=== PATIENT | female | born 1940 | race Caucasian/White ===

== ENCOUNTER 2021-09-28 10:05 | Inpatient (IN) | payer OTHER ==
[~2021-09-28] VITALS: Ht 163.8 cm; Wt 72.6 kg
[2021-09-28 10:46] LABS: HEMOGLOBIN 13.5 gm/dl (12.3-15.3); RED BLOOD COUNT 4.14 M/UL (4.00-5.10); WHITE BLOOD COUNT 15.4 K/UL (4.5-11.0)
[2021-09-28 11:18] LABS: BUN/CREATININE RATIO 14 (0-10)
[2021-09-28] MEDS ORDERED: LEVOXYL75 MCG PO (12:06)
[2021-09-28] MEDS ORDERED: PRAVASTATIN SOD40 MG PO (12:06)
[2021-09-28] MEDS ORDERED: ZYRTEC10 MG PO (12:07)
[2021-09-28] MEDS ORDERED: ELIQUIS5 MG PO (12:07)
[2021-09-28] MEDS ORDERED: METOPROLOL SUCC25 MG PO (12:07)
[2021-09-28] MEDS ORDERED: MULTIVITAMIN1 EACH PO (12:07)
[2021-09-28] MEDS ORDERED: VITAMIN D325 MC6 PO (12:08)
[2021-09-29 03:55] LABS: HEMOGLOBIN 13.6 gm/dl (12.3-15.3); RED BLOOD COUNT 4.17 M/UL (4.00-5.10); WHITE BLOOD COUNT 12.8 K/UL (4.5-11.0)
[2021-09-29 06:44] LABS: BUN/CREATININE RATIO 19 (0-10)
[2021-09-30 07:59] LABS: HEMOGLOBIN 12.3 gm/dl (12.3-15.3); RED BLOOD COUNT 3.96 M/UL (4.00-5.10); WHITE BLOOD COUNT 12.1 K/UL (4.5-11.0)
[2021-09-30 08:20] LABS: BUN/CREATININE RATIO 18 (0-10)
[2021-10-01 03:08] LABS: HEMOGLOBIN 11.9 gm/dl (12.3-15.3); RED BLOOD COUNT 3.76 M/UL (4.00-5.10); WHITE BLOOD COUNT 11.6 K/UL (4.5-11.0)
[2021-10-03] MEDS ORDERED: BETAPACE 80MG T80 MG PO (11:14)
[2021-10-03] MEDS ORDERED: AMOX TR-K CLV1 EAC4 PO (12:04)
== END 2021-10-03 12:51 | disposition home or self-care (01) | DRG 273 ==
LOC: ER1 10:05 → PROG CARE 13:00 → MED SURG 4 13:00 → CDU 13:00 → MED SURG 4 13:00 → PROG CARE 09-30 12:30
PROVIDERS: Emergency Medicine; Internal Medicine; Physician Assistant Medical; ADMIT Internal Medicine Infectious Disease
PROC: 5A2204Z Restoration of Cardiac Rhythm, Single (ICD-10-PCS; principal; 2021-09-30)
PROC: B24BZZZ Ultrasonography of Heart with Aorta (ICD-10-PCS; 2021-09-30)
PROC: 02K83ZZ Map Conduction Mechanism, Percutaneous Approach (ICD-10-PCS; 2021-10-01)
PROC: 4A0234Z Measurement of Cardiac Electrical Activity, Percutaneous Approach (ICD-10-PCS; 2021-10-01)
PROC: 4A023FZ Measurement of Cardiac Rhythm, Percutaneous Approach (ICD-10-PCS; 2021-10-01)
PROC: 02583ZZ Destruction of Conduction Mechanism, Percutaneous Approach (ICD-10-PCS; 2021-10-01)
DX: I48.19 Other persistent atrial fibrillation (principal); J18.9 Pneumonia, unspecified organism; E78.5 Hyperlipidemia, unspecified; I10 Essential (primary) hypertension; R00.1 Bradycardia, unspecified; I27.20 Pulmonary hypertension, unspecified; I07.1 Rheumatic tricuspid insufficiency; R94.31 Abnormal electrocardiogram [ECG] [EKG]; Z79.01 Long term (current) use of anticoagulants; Z90.49 Acquired absence of other specified parts of digestive tract; Z98.890 Other specified postprocedural states; Z85.828 Personal history of other malignant neoplasm of skin; Z79.899 Other long term (current) drug therapy; Z80.0 Family history of malignant neoplasm of digestive organs; Z82.49 Family history of ischemic heart disease and other diseases of the circulatory system; Z20.822 Contact with and (suspected) exposure to COVID-19
CPT/HCPCS: ECHO; 36415; 71045; 71046; 80048; 80053; 82550; 82553; 83605; 83735; 83880; 84439; 84443; 84484; 85025; 85027; 87040; 93005; 93270; 93306; 93609; 93620; 93621; 93623; 96374; 96375; 99152; 99153; 99285; C1730; C1733; C1766; G0378; J0456; J0696; J1200; J1644; J1742; J2060; J2250; J3010; J7030; J7040; U0002

== ENCOUNTER → 2021-11-24 | Outpatient (CLI) | payer OTHER ==
[~2021-11-24] MED LIST: AMOX TR-K CLV1 EAC4 PO; BETAPACE 80MG T80 MG PO; CLEOCIN HCL300 MG PO; CLINDAMYCIN HC300 MG PO; ELIQUIS5 MG PO; HYDROCODON-ACE1 EAC4 PO; LEVOFLOXACIN500 MG PO; LEVOXYL75 MCG PO; METOPROLOL SUCC25 MG PO; MULTIVITAMIN1 EACH PO; PRAVASTATIN SOD40 MG PO; VITAMIN D325 MC6 PO; ZYRTEC10 MG PO
[2021-11-24 09:52] LABS: HEMOGLOBIN 14.4 gm/dl (12.3-15.3); RED BLOOD COUNT 4.46 M/UL (4.00-5.10); WHITE BLOOD COUNT 7.1 K/UL (4.5-11.0)
== END ==
LOC: LAB 09:26
PROVIDERS: Internal Medicine Cardiovascular Disease
DX: I49.5 Sick sinus syndrome (principal); I48.91 Unspecified atrial fibrillation; I45.5 Other specified heart block; J43.9 Emphysema, unspecified
CPT/HCPCS: 36415; 71046; 80048; 85025

== ENCOUNTER 2021-11-26 06:16 | Outpatient (CLI) | payer OTHER ==
[~2021-11-26] VITALS: Ht 165.1 cm; Wt 72.7 kg
[~2021-11-26 06:16] MED LIST changes: -CLEOCIN HCL300 MG PO; -CLINDAMYCIN HC300 MG PO; -HYDROCODON-ACE1 EAC4 PO; -LEVOFLOXACIN500 MG PO
[2021-11-26] MEDS ORDERED: HYDROCODON-ACE1 EAC4 PO ×2 (09:05→11:24)
[2021-11-26] MEDS ORDERED: CLEOCIN HCL300 MG PO (09:05)
[2021-11-26] MEDS ORDERED: LEVOFLOXACIN500 MG PO ×2 (09:05→11:20)
[2021-11-26] MEDS ORDERED: CLINDAMYCIN HC300 MG PO (11:22)
--- NOTE | 2021-11-26 13:25 | NUR ---
PT/OT ATTEMPTED TO WORK WITH PATIENT. [employer] REFUSED. CLAIMS HE IS NOT IN NEED OF ANY TYPE OF REHAB.
== END 2021-11-27 11:00 | disposition home or self-care (01) ==
LOC: CATH 06:16 → PROG CARE 10:45 → CATH 11-27 11:00
DX: I49.5 Sick sinus syndrome (principal); I48.0 Paroxysmal atrial fibrillation; I45.5 Other specified heart block; I48.92 Unspecified atrial flutter; I10 Essential (primary) hypertension; E03.9 Hypothyroidism, unspecified; E78.00 Pure hypercholesterolemia, unspecified; Z88.5 Allergy status to narcotic agent; Z79.01 Long term (current) use of anticoagulants
CPT/HCPCS: 33208; 71045; 93005; 99152; 99153; C1785; C1898; J1644; J1742; J2250; J3010; J3370; J7040; J7050; J7070